=== PATIENT | female | born 1985 | race Caucasian/White ===

== ENCOUNTER 2017-04-24 21:25 | Emergency (ER) | payer OTHER ==
[~2017-04-24] VITALS: Ht 160 cm; Wt 88.5 kg
--- NOTE | 2017-04-24 21:30 | NUR ---
Patient triaged and placed in waiting room. VSS and patient appears in no acute distress at this time. Accompanied by friend, awaiting available bed, and MD notified of need for MSE.
[2017-04-24 21:31] VITALS: BP_SYST 144
--- NOTE | 2017-04-24 23:10 | NUR ---
Patient to ER bed 7 to gown for evaluation. Side rails up. Report given to Gissel ESPANA.
--- NOTE | 2017-04-24 23:17 | NUR ---
chief technician x ray at bedside
--- NOTE | 2017-04-24 23:46 | NUR ---
Pt states @ about 8pm tonight she urinated and when she wiped she noticed light amount of blood. She has urinated since and has not had any more spotting. This is her second , and she is not c/o any abdominal pain.
--- NOTE | 2017-04-24 23:55 | NUR ---
ER at bedside examining patient.
[2017-04-25 00:05] VITALS: BP_SYST 130
--- NOTE | 2017-04-25 00:05 | NUR ---
Patient given written and verbal discharge instructions and verbalizes understanding. ER MD discussed with patient the results and treatment provided. Patient in stable condition. ID arm band removed. Patient educated on pain management and to follow up with PMD. Pain Scale 0. Opportunity for questions provided and answered.
== END 2017-04-25 00:05 | disposition home or self-care (01) ==
LOC: SED 21:25
DX: O20.0 Threatened abortion (principal); Z3A.13 13 weeks gestation of pregnancy
CPT/HCPCS: 76815; 81025; 99284

== ENCOUNTER 2017-04-25 08:56 | Emergency (ER) | payer OTHER ==
[~2017-04-25] VITALS: Ht 160 cm; Wt 68.0 kg
[2017-04-25 08:56] VITALS: BP_SYST 129
--- NOTE | 2017-04-25 08:56 | NUR ---
BROUGHT BACK TO BED #8 AND TRIAGED. REPORT GIVEN TO RU
--- NOTE | 2017-04-25 09:00 | NUR ---
Pt states there was vaginal spotting last night, pt is 13 weeks and was worried. Pt came into the ER last night and an US was performed, pt was discharged last night from ER. Pt states this morning there was moderate cramping and was worried. No other injuries/complaints per pt or noted.
--- NOTE | 2017-04-25 09:12 | NUR ---
ER at bedside examining patient.
[2017-04-25 09:45] VITALS: BP_SYST 140
--- NOTE | 2017-04-25 09:45 | NUR ---
Patient given written and verbal discharge instructions and verbalizes understanding. ER MD discussed with patient the results and treatment provided. Patient in stable condition. ID arm band removed. Patient educated on pain management and to follow up with PMD. Pain Scale 1. Opportunity for questions provided and answered.
== END 2017-04-25 09:45 | disposition home or self-care (01) ==
LOC: SED 08:56
DX: O20.0 Threatened abortion (principal); Z3A.09 9 weeks gestation of pregnancy
CPT/HCPCS: 36415; 81025; 84702-TC; 99283